=== PATIENT | male | born 1995 | race Two or more races ===

== ENCOUNTER 2024-05-29 01:36 | Emergency (ER) | payer SELFPAY ==
[2024-05-29] MEDS ORDERED: Sodium Chloride 0.9% 10 ML Syringe FLUSH PRN (01:42)
[2024-05-29 01:53] LABS: BASOPHILS ABSOLUTE AUTO 0.03 K/uL (0.00-0.20); BASOPHILS PERCENT AUTO 0.4 % (0.0-1.0); EOSINOPHILS ABSOLUTE AUTO 0.38 K/uL (0.00-0.45); EOSINOPHILS PERCENT AUTO 5.1 % (0.0-6.0); HEMATOCRIT 41.2 % (42.0-52.0); HEMOGLOBIN 14.3 g/dL (14.0-18.0); IMMATURE GRAN ABSOLUTE AUTO 0.02 K/uL (0.00-0.05); IMMATURE GRAN PERCENT AUTO 0.3 % (0.0-0.4); LYMPHOCYTES ABSOLUTE AUTO 2.72 K/uL (1.00-4.80); LYMPHOCYTES PERCENT AUTO 36.7 % (24.0-44.0); MEAN CORPUSCULAR HEMOGLOBIN 28.4 pg (28.0-32.0); MEAN CORPUSCULAR HGB CONC 34.7 g/dL (32.0-36.0); MEAN CORPUSCULAR VOLUME 81.9 fL (83.0-99.0); MONOCYTES PERCENT AUTO 6.7 % (0.0-8.0); NEUTROPHILS ABSOLUTE AUTO 3.77 K/uL (1.80-7.70); NEUTROPHILS PERCENT AUTO 50.8 % (41.0-71.0); PLATELET COUNT,PLT 239 K/uL (150-400); RED BLOOD CELL COUNT 5.03 M/uL (4.52-5.90); WHITE BLOOD CELL COUNT,WBC 7.42 K/uL (3.9-11.3)
[2024-05-29] MEDS: Sodium Chloride 0.9% 1,000 ML IV ONE (02:38)
[2024-05-29] MEDS: HYDROmorphone 1 MG/ML Syringe IVPUSH ONE (02:39)
[2024-05-29 02:42] LABS: A/G RATIO 1.3 (0.9-1.6); ALANINE AMINOTRANSFERASE,ALT 29 IU/L (14-63); ALKALINE PHOSPHATASE 100 U/L (46-116); ASPARTATE AMNIOTRANSFERASE,AST 18 IU/L (15-37); BILIRUBIN TOTAL 0.3 mg/dL (0.2-1.0); BLOOD UREA NITROGEN,BUN 18 mg/dL (7.0-18.0); CALCIUM 8.8 mg/dL (8.5-10.1); CARBON DIOXIDE,CO2 26.4 mmol/L (21.0-32.0); CHLORIDE,CL 102 mmol/L (98-107); GLUCOSE RANDOM 131 mg/dL (74-106); LIPASE 38 U/L (16-77); POTASSIUM,K 3.2 mmol/L (3.5-5.1); PROTEIN TOTAL,TP 7.1 g/dL (6.4-8.2); SODIUM,NA 138 mmol/L (136-148)
[2024-05-29 02:43] LABS: ESTIMATED GFR 105 mL/min (>60)
[2024-05-29] MEDS: Ondansetron 4 MG/2 ML SDV IVPUSH ONE (02:43)
== END 2024-05-29 04:45 ==
LOC: MW.ED 01:36
DX: N44.00 Torsion of testis, unspecified (principal)
CPT/HCPCS: 36415; 76870; 80053; 83605; 83690; 85025; 93976; 96361; 96374; 96375; 99285; J1171; J2405; J7030

== ENCOUNTER 2024-07-04 01:30 | Emergency (ER) | payer SELFPAY ==
[2024-07-04] MEDS ORDERED: Sodium Chloride 0.9% 2.5 ML Syringe FLUSH PRN (01:41)
[2024-07-04] MEDS ORDERED: Sodium Chloride 0.9% 10 ML Syringe FLUSH PRN (01:41)
[2024-07-04 01:55] LABS: BASOPHILS ABSOLUTE AUTO 0.03 K/uL (0.00-0.20); BASOPHILS PERCENT AUTO 0.5 % (0.0-1.0); EOSINOPHILS ABSOLUTE AUTO 0.22 K/uL (0.00-0.45); EOSINOPHILS PERCENT AUTO 3.8 % (0.0-6.0); HEMATOCRIT 41.3 % (42.0-52.0); HEMOGLOBIN 14.1 g/dL (14.0-18.0); IMMATURE GRAN ABSOLUTE AUTO 0.01 K/uL (0.00-0.05); IMMATURE GRAN PERCENT AUTO 0.2 % (0.0-0.4); LYMPHOCYTES ABSOLUTE AUTO 2.29 K/uL (1.00-4.80); LYMPHOCYTES PERCENT AUTO 39.8 % (24.0-44.0); MEAN CORPUSCULAR HEMOGLOBIN 28.4 pg (28.0-32.0); MEAN CORPUSCULAR HGB CONC 34.1 g/dL (32.0-36.0); MEAN CORPUSCULAR VOLUME 83.3 fL (83.0-99.0); MEAN PLATELET VOLUME 9.2 fL (9.4-12.4); MONOCYTES ABSOLUTE AUTO 0.52 K/uL (0.00-0.80); NEUTROPHILS ABSOLUTE AUTO 2.68 K/uL (1.80-7.70); NEUTROPHILS PERCENT AUTO 46.7 % (41.0-71.0); PLATELET COUNT,PLT 243 K/uL (150-400); RED BLOOD CELL COUNT 4.96 M/uL (4.52-5.90); WHITE BLOOD CELL COUNT,WBC 5.75 K/uL (3.9-11.3)
[2024-07-04] MEDS: fentaNYL 100 MCG/2 ML SDV IVPUSH ONE (01:57)
[2024-07-04 01:58] LABS: APPEARANCE,URINE CLEAR; BILIRUBIN,URINE NEGATIVE (NEGATIVE); COLOR,URINE YELLOW; GLUCOSE,URINE NEGATIVE (NEGATIVE); KETONES,URINE NEGATIVE (NEGATIVE); LEUKOCYTE ESTERASE,URINE NEGATIVE (NEGATIVE); NITRITE,URINE NEGATIVE (NEGATIVE); OCCULT BLOOD,URINE NEGATIVE (NEGATIVE); PH,URINE 6.5 (5.0-8.0); PROTEIN,URINE NEGATIVE (NEGATIVE); UROBILINOGEN,URINE 0.2 EU/dL (<2.0)
[2024-07-04] MEDS: Sodium Chloride 0.9% 1,000 ML IV ONE (01:58)
[2024-07-04] MEDS: Ondansetron 4 MG/2 ML SDV IVPUSH ONE (02:00)
[2024-07-04 02:22] LABS: A/G RATIO 1.2 (0.9-1.6); ALBUMIN 4.1 g/dL (3.4-5.0); BILIRUBIN TOTAL 0.3 mg/dL (0.2-1.0); CARBON DIOXIDE,CO2 28.2 mmol/L (21.0-32.0); EST CRCL DRUG DOSING (CG) 99.75 mL/min; POTASSIUM,K 3.9 mmol/L (3.5-5.1); PROTEIN TOTAL,TP 7.5 g/dL (6.4-8.2)
[2024-07-04] MEDS: Morphine 4 MG/ML Syringe IVPUSH ONE (02:37)
[2024-07-04] MEDS: Ketorolac 30 MG/ML SDV IVPUSH STA (02:49)
== END 2024-07-04 03:51 | disposition home or self-care (01) ==
LOC: MW.ED 01:30
DX: N43.3 Hydrocele, unspecified (principal)
CPT/HCPCS: 36415; 76870; 80053; 81003; 85025; 93976; 96374; 96375; 99284; J1885; J2405; J3010; J7030

== ENCOUNTER 2025-02-05 13:16 | Emergency (ER) | payer SELFPAY ==
[2025-02-05 13:59] LABS: BASOPHILS ABSOLUTE AUTO 0.03 K/uL (0.00-0.20); BASOPHILS PERCENT AUTO 0.4 % (0.0-1.0); EOSINOPHILS ABSOLUTE AUTO 0.39 K/uL (0.00-0.45); EOSINOPHILS PERCENT AUTO 5.5 % (0.0-6.0); IMMATURE GRAN ABSOLUTE AUTO 0.01 K/uL (0.00-0.05); IMMATURE GRAN PERCENT AUTO 0.1 % (0.0-0.4); LYMPHOCYTES ABSOLUTE AUTO 2.03 K/uL (1.00-4.80); LYMPHOCYTES PERCENT AUTO 28.7 % (24.0-44.0); MEAN PLATELET VOLUME 9.0 fL (9.4-12.4); MONOCYTES ABSOLUTE AUTO 0.45 K/uL (0.00-0.80); MONOCYTES PERCENT AUTO 6.4 % (0.0-8.0); NEUTROPHILS ABSOLUTE AUTO 4.16 K/uL (1.80-7.70); NEUTROPHILS PERCENT AUTO 58.9 % (41.0-71.0); NRBC ABSOLUTE 0.00 K/uL (0.00-0.02); NRBC PERCENT 0.0 /100WBC (0.0-0.2); PLATELET COUNT,PLT 209 K/uL (150-400); RED BLOOD CELL COUNT 5.28 M/uL (4.52-5.90); WHITE BLOOD CELL COUNT,WBC 7.07 K/uL (3.9-11.3)
[2025-02-05 14:24] LABS: A/G RATIO 1.3 (0.9-1.6); ALANINE AMINOTRANSFERASE,ALT 36.0 IU/L (14-63); ASPARTATE AMNIOTRANSFERASE,AST 16.0 IU/L (15-37); BILIRUBIN TOTAL 0.7 mg/dL (0.2-1.0); BLOOD UREA NITROGEN,BUN 17.0 mg/dL (7.0-18.0); CARBON DIOXIDE,CO2 27.0 mmol/L (21.0-32.0); CHLORIDE,CL 101.0 mmol/L (98-107); CREATININE 1.1 mg/dL (0.8-1.3); EST CRCL DRUG DOSING (CG) 99.09 mL/min; GLUCOSE RANDOM 92.0 mg/dL (74-106); POTASSIUM,K 3.9 mmol/L (3.5-5.1); PROTEIN TOTAL,TP 7.3 g/dL (6.4-8.2); SODIUM,NA 136.0 mmol/L (136-148)
[2025-02-05 14:34] LABS: ESTIMATED GFR 93.0 mL/min (>60)
[2025-02-05] MEDS: Ketorolac 30 MG/ML SDV IVPUSH ONE (14:59)
[2025-02-05] MEDS: Iopamidol 755 MG/ML 500 ML Multipack Bottle IVPUSH STA (15:33)
[2025-02-05 16:01] LABS: APPEARANCE,URINE CLEAR; GLUCOSE,URINE NEGATIVE (NEGATIVE); OCCULT BLOOD,URINE TRACE-INTACT (NEGATIVE)
[2025-02-05 16:10] LABS: EPITHELIAL CELLS,URINE NOT SEEN (NONE-FEW)
== END 2025-02-05 16:28 | disposition home or self-care (01) ==
LOC: MW.ED 13:16
DX: K63.89 Other specified diseases of intestine (principal); R10.814 Left lower quadrant abdominal tenderness; R10.32 Left lower quadrant pain; R31.29 Other microscopic hematuria
CPT/HCPCS: 36415; 74177; 80053; 81001; 83690; 85025; 96361; 96374; 99284; J1885; J7030; Q9967; 99283

== ENCOUNTER 2025-03-16 09:30 | Emergency (ER) | payer SELFPAY ==
[2025-03-16 10:04] LABS: APPEARANCE,URINE CLEAR; GLUCOSE,URINE NEGATIVE (NEGATIVE); OCCULT BLOOD,URINE TRACE-INTACT (NEGATIVE)
[2025-03-16 10:38] LABS: BASOPHILS ABSOLUTE AUTO 0.01 K/uL (0.00-0.20); BASOPHILS PERCENT AUTO 0.2 % (0.0-1.0); EOSINOPHILS ABSOLUTE AUTO 0.13 K/uL (0.00-0.45); EOSINOPHILS PERCENT AUTO 2.8 % (0.0-6.0); IMMATURE GRAN ABSOLUTE AUTO 0.01 K/uL (0.00-0.05); IMMATURE GRAN PERCENT AUTO 0.2 % (0.0-0.4); LYMPHOCYTES ABSOLUTE AUTO 1.39 K/uL (1.00-4.80); LYMPHOCYTES PERCENT AUTO 30.3 % (24.0-44.0); MEAN PLATELET VOLUME 9.0 fL (9.4-12.4); MONOCYTES ABSOLUTE AUTO 0.39 K/uL (0.00-0.80); MONOCYTES PERCENT AUTO 8.5 % (0.0-8.0); NEUTROPHILS ABSOLUTE AUTO 2.66 K/uL (1.80-7.70); NEUTROPHILS PERCENT AUTO 58.0 % (41.0-71.0); NRBC ABSOLUTE 0.00 K/uL (0.00-0.02); NRBC PERCENT 0.0 /100WBC (0.0-0.2); PLATELET COUNT,PLT 237 K/uL (150-400); RED BLOOD CELL COUNT 5.49 M/uL (4.52-5.90); WHITE BLOOD CELL COUNT,WBC 4.59 K/uL (3.9-11.3)
[2025-03-16 10:39] LABS: EPITHELIAL CELLS,URINE RARE (NONE-FEW)
[2025-03-16 10:55] LABS: BLOOD UREA NITROGEN,BUN 19.0 mg/dL (7.0-18.0); CARBON DIOXIDE,CO2 27.2 mmol/L (21.0-32.0); CHLORIDE,CL 104.0 mmol/L (98-107); CREATININE 1.1 mg/dL (0.8-1.3); GLUCOSE RANDOM 93.0 mg/dL (74-106); POTASSIUM,K 4.4 mmol/L (3.5-5.1); SODIUM,NA 141.0 mmol/L (136-148)
[2025-03-16 10:56] LABS: EST CRCL DRUG DOSING (CG) 92.41 mL/min
[2025-03-16 10:57] LABS: ESTIMATED GFR 93.0 mL/min (>60)
[2025-03-16] MEDS: Ketorolac 30 MG/ML SDV IM ONE (13:03)
== END 2025-03-16 13:45 | disposition home or self-care (01) ==
LOC: MW.ED 09:30
DX: N45.1 Epididymitis (principal)
CPT/HCPCS: 36415; 76870; 80048; 81001; 85025; 93976; 96372; 99284; J0696; J1885; J2003; 99283